=== PATIENT | male | born 1995 | race Caucasian/White ===

== ENCOUNTER 2018-05-11 15:31 | Emergency (ER) | payer MEDICAID, OTHER, SELFPAY ==
[~2018-05-11] VITALS: Ht 175.3 cm; Wt 78.4 kg
[2018-05-11] MEDS ORDERED: METHOCARBAMOL 750 MG TABLET PO ONE (17:30)
[2018-05-11] MEDS ORDERED: METHOCARBAMOL 750 MG TABLET ONE (17:34)
[2018-05-11 17:59] VITALS: BP 125/79
== END 2018-05-11 18:01 | disposition home or self-care (01) ==
LOC: ED 17:54
DX: S16.1XXA Strain of muscle, fascia and tendon at neck level, initial encounter (principal); G89.21 Chronic pain due to trauma; M54.6 Pain in thoracic spine; F17.200 Nicotine dependence, unspecified, uncomplicated; V49.09XA Driver injured in collision with other motor vehicles in nontraffic accident, initial encounter; Y93.89 Activity, other specified; Y92.89 Other specified places as the place of occurrence of the external cause; Y99.8 Other external cause status
CPT/HCPCS: 72020; 72050; 72072; 99284